=== PATIENT | male | born 1980 | race Two or more races ===

== ENCOUNTER 2020-09-26 15:28 | Emergency (ER) | payer BC ==
[~2020-09-26] VITALS: Ht 177.8 cm; Wt 93.0 kg
[2020-09-26] MEDS ORDERED: CEFADROXIL500 MG PO (17:43)
[2020-09-26] MEDS ORDERED: IBU800 MG PO (17:45)
[2020-09-26] MEDS ORDERED: ULTRAM50 MG PO (17:45)
== END 2020-09-26 19:20 | disposition home or self-care (01) ==
LOC: ER 15:28
DX: S09.21XA Traumatic rupture of right ear drum, initial encounter (principal); W45.8XXA Other foreign body or object entering through skin, initial encounter; Y93.89 Activity, other specified; Y92.89 Other specified places as the place of occurrence of the external cause; Y99.8 Other external cause status